=== PATIENT | male | born 1945 | race Caucasian/White ===

== ENCOUNTER → 2019-02-18 | Outpatient (CLI) | payer OTHER ==
[~2019-02-18] MED LIST: ASPIRIN; KDUR; MULTIVITAMIN; NORVASC5 MG; PEPCID AC; TENORETIC 50 501 TAB; VITAMIN E; ZOCOR20 MG
== END | disposition home or self-care (01) ==
LOC: US 09:50
DX: K76.0 Fatty (change of) liver, not elsewhere classified (principal)